=== PATIENT | female | born 1945 | race Hispanic/Latino ===

== ENCOUNTER 2021-08-30 15:00 | Observation (INO) | payer OTHER ==
[~2021-08-30] VITALS: Ht 160 cm; Wt 76.0 kg
[2021-08-30 12:22] LABS: BASOPHILS % (AUTO) 0.6 % (0.0-5.0); EOSINOPHILS % (AUTO) 2.6 % (0.0-8.0); HEMATOCRIT 42.3 % (36-48); LYMPHOCYTES % (AUTO) 22.9 % (21.0-51.0); MEAN CORPUSCULAR HEMOGLOBIN 29.5 pg (27.0-33.0); MEAN CORPUSCULAR HGB CONC 31.9 g/dL (32.0-36.0); MEAN CORPUSCULAR VOLUME 92.6 fL (79-99); MONOCYTES % (AUTO) 6.5 % (3.0-13.0); PLATELET COUNT (AUTO) 290 K/uL (130-400); RED BLOOD CELL COUNT(AUTO) 4.57 MIL/uL (4.00-5.50); RED CELL DISTRIBUTION WIDTH 13.4 % (11.0-15.5); WHITE BLOOD COUNT (AUTO) 4.9 K/uL (4.8-10.8)
[2021-08-30 12:29] LABS: CREATININE 0.6 mg/dL (0.5-1.5)
[2021-09-03 10:07] VITALS: BP 180/95
[2021-09-03] MEDS ORDERED: GABA-529 PO (10:45)
[2021-09-03] MEDS ORDERED: VITAMIN D3 PO (10:45)
[2021-09-03] MEDS ORDERED: OMEG-148 PO (10:45)
[2021-09-03] MEDS ORDERED: LISI40TA9 PO (10:45)
[2021-09-03] MEDS ORDERED: ATOR40TA69 PO (10:45)
[2021-09-03] MEDS ORDERED: LORA10TA7 PO (10:45)
[2021-09-03] MEDS ORDERED: CARV6.25 PO (10:45)
[2021-09-03] MEDS ORDERED: ACET-66 PO (10:45)
[2021-09-03] MEDS ORDERED: MULT-1250 PO (10:45)
[2021-09-03] MEDS ORDERED: AEC81 PO (10:45)
[2021-09-04] VITALS (23 sets, daily range): BP systolic 112–172; BP diastolic 54–92
[2021-09-04] MEDS: CEFAZOLIN SODIUM 1 GM VIAL IVP SCH ×4 (06:00→18:09)
[2021-09-04] MEDS ORDERED: LACTATED RINGERS 1000ML 1,000 ML IV ONE (06:07)
[2021-09-04] MEDS ORDERED: MORPHINE PF 100MG/10ML AMP IV ONE (07:05)
[2021-09-04] MEDS ORDERED: BUPIVACAINE/EPI/PF 0.5% 30ML VIAL IJ ONE (07:05)
[2021-09-04] MEDS ORDERED: CEFAZOLIN SODIUM 1 GM VIAL ONE (07:05)
[2021-09-04] MEDS ORDERED: THROMBIN-JMI 20000 UNIT KIT TP ONE (07:06)
[2021-09-04] MEDS ORDERED: SUCCINYLCHOLINE CHLORIDE 20 MG/ML 10 ML VIAL ONE (07:20)
[2021-09-04] MEDS ORDERED: LIDOCAINE PF 100MG/5ML (2%) SYRINGE 5ML ONE (07:20)
[2021-09-04] MEDS ORDERED: PROPOFOL 10 MG/ML 20ML VIAL IV ONE (07:22)
[2021-09-04] MEDS ORDERED: ROCURONIUM 10MG/1ML SYR 10 MG/ML ML ONE (07:22)
[2021-09-04] MEDS ORDERED: FENTANYL CITRATE PF 50 MCG/1 ML 2ML VIAL ONE (07:22)
[2021-09-04] MEDS ORDERED: PHENYLEPHRINE HCL 10 MG/ML 1ML VIAL IV ONE (07:24)
[2021-09-04] MEDS ORDERED: GLYCOPYRROLATE 1 MG/5 ML SYRINGE ONE (08:23)
[2021-09-04] MEDS ORDERED: NEOSTIGMINE 5MG/5ML SYR IV ONE (10:08)
[2021-09-04] MEDS ORDERED: ONDANSETRON 4MG INJ ONE (10:09)
[2021-09-04] MEDS ORDERED: DEXAMETHASONE SOD PHOSPHATE 10MG/ML 1ML VIAL ONE (10:09)
[2021-09-04] MEDS ORDERED: KETOROLAC 30MG VIAL (30MG/ML) ONE (10:11)
[2021-09-04] MEDS: DEXAMETHASONE SOD PHOSPHATE 4 MG/ML 1ML VIAL IVP SCH ×3 (11:00→21:37)
[2021-09-04] MEDS ORDERED: 0.9%NACL 10ML VIAL IVP PRN (11:00)
[2021-09-04] MEDS ORDERED: LACTATED RINGERS 1000ML 1,000 ML IV SCH (11:00)
[2021-09-04] MEDS ORDERED: PROMETHAZINE HCL 25 MG/ML 1ML AMPULE IM PRN (11:00)
[2021-09-04] MEDS ORDERED: MORPHINE 2 MG SYG IVP PRN (11:00)
[2021-09-04] MEDS ORDERED: MEPERIDINE-PF 25 MG/ML SYG ONE (11:10)
[2021-09-04] MEDS: ACETAMINOPHEN 500 MG TABLET PO SCH ×2 (14:00→20:01)
[2021-09-04] MEDS: HYDROCODONE/ACETAMINOPHEN 5/325 MG TAB PO PRN (18:08)
[2021-09-04] MEDS ORDERED: ASPIRIN 81 MG EC TAB ONE (19:25)
[2021-09-04] MEDS ORDERED: ATORVASTATIN 40 MG TABLET ONE (19:25)
[2021-09-04] MEDS ORDERED: CARVEDILOL 6.25 MG TABLET PO ONE (19:25)
[2021-09-04] MEDS: CARVEDILOL 6.25 MG TABLET PO SCH (20:01)
[2021-09-04] MEDS ORDERED: GABAPENTIN 100 MG CAPSULE ONE (20:36)
[2021-09-04] MEDS ORDERED: GABAPENTIN 100 MG CAPSULE PO SCH (21:00)
[2021-09-04] MEDS ORDERED: ATORVASTATIN 40 MG TABLET PO SCH (21:00)
[2021-09-04] MEDS ORDERED: ASPIRIN 81 MG EC TAB PO SCH (21:00)
[2021-09-05 00:20] VITALS: BP 151/77
[2021-09-05 04:20] VITALS: BP 153/70
[2021-09-05] MEDS: DEXAMETHASONE SOD PHOSPHATE 4 MG/ML 1ML VIAL IVP SCH (04:53)
[2021-09-05 07:47] VITALS: BP 161/79
[2021-09-05] MEDS ORDERED: GABAPENTIN 100 MG CAPSULE PO SCH (09:00)
[2021-09-05] MEDS ORDERED: LORATADINE 10 MG TABLET PO SCH (09:00)
[2021-09-05] MEDS ORDERED: **HM** VIT D3 2000 UNITS PO SCH (09:00)
[2021-09-05] MEDS ORDERED: LISINOPRIL 40 MG TABLET PO SCH (09:00)
[2021-09-05] MEDS ORDERED: MULTIVITAMINS/MINERALS/IRO TAB PO SCH (09:00)
[2021-09-05] MEDS ORDERED: FISH OIL 1000 MG/CAP PO SCH (09:00)
[2021-09-05 09:04] VITALS: BP 161/79
[2021-09-05] MEDS: HYDROCODONE/ACETAMINOPHEN 5/325 MG TAB PO PRN (09:04)
[2021-09-05] MEDS: CARVEDILOL 6.25 MG TABLET PO SCH (09:04)
== END 2021-09-05 10:30 | disposition home or self-care (01) ==
LOC: EDSTATUS 15:00 → DAHIP 09-04 05:51 → 4AH 09-04 11:49
PROVIDERS: ADMIT Neurological Surgery; ATTEND Neurological Surgery
DX: M48.07 Spinal stenosis, lumbosacral region (principal); Z20.822 Contact with and (suspected) exposure to COVID-19; M21.379 Foot drop, unspecified foot; I10 Essential (primary) hypertension; Z79.899 Other long term (current) drug therapy
CPT/HCPCS: 36415; 63047; 63048; 71045; 72020; 80048; 85025; 87635; 96361 ×2; 96374; 96375; 96376 ×2; A4215; A4221; A4222; A4223; A4344; A4600; A4649 ×2; A4930; A6260; G0378 ×23; J0330; J0690 ×3; J1100 ×4; J1885; J2001; J2175; J2274; J2370; J2405; J2704; J2710; J3010; J3490 ×2; J7120 ×3